=== PATIENT | male | born 1930 | race Caucasian/White ===

== ENCOUNTER 2017-01-24 12:01 | Emergency (ER) | payer MEDICARE ==
[~2017-01-24] VITALS: Ht 177.8 cm; Wt 90.9 kg
[2017-01-24] MEDS ORDERED: ASPI81TA85 PO (12:11)
[2017-01-24] MEDS ORDERED: AMLO2.5T PO (12:11)
[2017-01-24] MEDS ORDERED: MIRA33504 PO (12:13)
--- NOTE | 2017-01-24 14:06 | REP ---
CT study of the brain without contrast: History: Trauma. 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 The patient is edentulous. Bone window settings demonstrate an intact bony calvarium. Visualized paranasal sinuses are clear. No intraorbital abnormality is seen. There is diffuse moderate atrophy. There is no evidence of infarction, hemorrhage, extra-axial fluid collection, mass or midline shift. Impression: Moderate diffuse atrophy. Mild vascular calcification. No acute intracranial lesion. Signed by Manolo Briscoe MD 01/24/2017 02:18 P
--- NOTE | 2017-01-24 14:16 | REP ---
CT study of the cervical spine without contrast: History: Trauma. Technique: Helical scanning is acquired and overlapping 2 mm high resolution axial images were generated and reviewed at bone and soft tissue window settings. Coronal and sagittal multiplanar re-formations images are generated. CT findings: There is straightening and slight reversal of the normal cervical lordosis. Fairly advanced diffuse degenerative spondylosis changes are seen in the cervical spine. There is a minimal dextroconvex curvature. There is left-sided neural foraminal narrowing at C4-5. There is no evidence of cervical spine element fracture. No skull base fracture is seen. Cervical vertebral body heights are preserved. Alignment is normal. Facet joints are normally aligned bilaterally at each cervical level on multiplanar re-formations images. There is no evidence of intraspinal or paraspinal hematoma. No extra vertebral abnormality is seen. Impression: Fairly advanced degenerative spondylosis changes. Straightening. Otherwise negative CT study of the cervical spine without contrast. No fracture seen. Signed by Manolo Briscoe MD 01/24/2017 02:18 P
[2017-01-24 14:34] VITALS: BP 193/94
== END 2017-01-24 14:35 | disposition home or self-care (01) ==
LOC: M ED 12:01
DX: S01.91XA Laceration without foreign body of unspecified part of head, initial encounter (principal); M43.02 Spondylolysis, cervical region; W20.8XXA Other cause of strike by thrown, projected or falling object, initial encounter; Y92.099 Unspecified place in other non-institutional residence as the place of occurrence of the external cause; Y93.89 Activity, other specified; Y99.9 Unspecified external cause status